=== PATIENT | female | born 1935 | race Caucasian/White ===

== ENCOUNTER → 2016-11-09 | Outpatient (CLI) | payer MEDICARE, OTHER ==
[~2016-11-09] VITALS: Ht 152.4 cm; Wt 59.9 kg
[~2016-11-09] MED LIST: LOMOTIL TABLET1 EACH ORAL; METRONIDAZOLE500 MG ORAL; PROBIOTIC ACID1 EAC3 PO; RECTIV30 GM RC
[2016-11-09 09:58] VITALS: BP 113/69
--- NOTE | 2016-12-06 16:17 | GI Initial Consult Note ---
History of Present Illness General Date patient seen: Nov 09, 2016 Time patient seen: 09:52 Referring physician: GINI Reason for Consultation: RECTAL PAIN Present Illness HPI 81 year old female patient referred to [facility] by Dr. Callahan for evaluation of rectal pain. No other GI complaints noted at this time. Home Meds Reported Medications Diphenoxylate Hcl/Atropine (LOMOTIL TABLET) 1 Each Tablet, 1 TAB ORAL PRN, #30 TAB 0 Refills 11/09/16 Nitroglycerin (RECTIV) 30 Gm Oint...g., 30 GM RC, GM 11/09/16 Metronidazole* (FLAGYL*) 500 Mg Tablet, ORAL THREE TIMES A DAY, #21 TAB 0 Refills 11/09/16 Lactobacillus Acidophilus (Probiotic Acidophilus) 1 Each Tablet, 1 EACH PO DAILY , TAB 11/09/16 Med list reviewed/reconciled: Yes Allergies: Coded Allergies: No Known Allergies (Unverified , 11/09/16) Patient History History Provided By: Patient, Medical Record PMH Narrative diarrhea chronic anal fissure pain PSHx Rectal surgery? Social History: Denies: alcohol use, drug use, other, smoking Review of Systems All Other Systems: negative except mentioned in HPI Physical Exam T 97.8 BP 113/69 P 66 HT 5'0 WT 132 Sp02 EP Interpretation: reviewed General Appearance: well appearing, no apparent distress, alert Head: normocephalic EENT: PERRL/EOMI, normal ENT inspection Neck: supple Respiratory: normal breath sounds, no respiratory distress Cardiovascular: normal rate Gastrointestinal: soft Rectal: deferred Genitourinary: normal inspection Musculoskeletal: normal inspection, back normal Neurologic: normal inspection, alert, oriented x3, responsive Psychiatric: normal inspection, judgement/insight normal, memory normal Skin: normal inspection, normal color, no rash, warm/dry Lymphatic: normal inspection, no adenopathy GI: Plan Problems: (1) Chronic rectal pain (2) Anal fissure (3) Anal abscess Plan LATE ENTRY anal fissure vs abscess ordered anal MRI fu past MR cont rectiv for chronic anal fissure pain Seen with Dr. Macdonald. Thank you for referring this patient. Rosey Nickerson N.P. Dec 06, 2016 16:17
== END | disposition home or self-care (01) ==
LOC: PAN 09:48
DX: K60.2 Anal fissure, unspecified (principal); K61.0 Anal abscess; G89.29 Other chronic pain
CPT/HCPCS: 99201

== ENCOUNTER 2018-02-11 23:37 | Emergency (ER) | payer MEDICARE, OTHER ==
[~2018-02-11] VITALS: Ht 154.9 cm; Wt 59.0 kg
[2018-02-11 23:59] VITALS: BP 140/81
[2018-02-12] MEDS ORDERED: Bacitracin Oint UD TOPIC ONE (00:15)
[2018-02-12] MEDS ORDERED: Tetanus/Diptheria/Pertussis Vaccine 0.5ml Syr IM ONE (00:15)
[2018-02-12] MEDS ORDERED: Augmentin 875mg Tab ORAL ONE (00:15)
[2018-02-12] MEDS ORDERED: AUGMENTIN 875-1 EAC1 ORAL (00:29)
[2018-02-12 00:35] VITALS: BP 0/0
--- NOTE | 2018-02-12 01:48 | Emergency Room Report ---
History of Present Illness General Chief Complaint: Animal Bite Source: Patient Present Illness HPI 82-year-old female presents ED complaining of rat bite to her left thumb. Happened tonight and she was setting a rat trap. Tetanus unknown. Denies any other injuries. Denies fevers or chills. Denies any drainage. Pain is sharp, 3 out of 10, nonradiating. No other aggravating relieving factors. Denies any other associated symptoms Allergies: Coded Allergies: No Known Allergies (Unverified , 11/09/16) Patient History Past Medical History: GERD Past Surgical History: none Pertinent Family History: none Social History: Denies: smoking, alcohol use, drug use Now: No Immunizations: UTD Reviewed Nursing Documentation: PMH: Agreed; PSxH: Agreed Nursing Documentation-PMH Past Medical History: No History, Except For Hx Cardiac Problems: No Hx Cancer: No Hx Gastrointestinal Problems: Yes - GERD Hx Neurological Problems: No Review of Systems All Other Systems: negative except mentioned in HPI Physical Exam Vital Signs Date Time Temp Pulse Resp B/P (MAP) Pulse Ox O2 Delivery O2 Flow Rate FiO2 02/11/18 23:43 97.7 80 16 140/81 99 Room Air 97.7 Sp02 EP Interpretation: reviewed, normal General Appearance: no apparent distress, alert, GCS 15, non-toxic Head: normocephalic Eyes: bilateral eye normal inspection, bilateral eye PERRL ENT: normal ENT inspection Neck: normal inspection Respiratory: normal inspection Cardiovascular #1: normal inspection Gastrointestinal: normal inspection Rectal: deferred Genitourinary: no CVA tenderness Musculoskeletal: normal inspection Neurologic: alert, oriented x3, responsive, motor strength/tone normal, sensory intact, speech normal Psychiatric: judgement/insight normal, memory normal, mood/affect normal, no suicidal/homicidal ideation Skin: other - small puncture wounds to L thumb. no induration/erythema. no discharge Lymphatic: normal inspection Medical Decision Making Diagnostic Impression: Primary Impression: Rat bite Qualified Codes: W53.11XA - Bitten by rat, initial encounter ER Course Hospital Course 82-year-old F presents ED c/o rat bite to L thumb Differential diagnoses include: abscess, cellulitis, fx Clinical course Patient placed on stretcher. After initial history and physical exam reveals elderly female in no acute distress. On exam there is 2 small puncture wounds to the left thumb. No fluctuance or erythema or induration. Patient appears well and nontoxic Wound irrigated. Bacitracin applied. Tetanus given. Augmentin given Diagnosis - rat bite Stable and discharged to home with prescription Rx augmentin. Followup with PMD. Return to ED if symptoms recur or worsen Last Vital Signs Date Time Temp Pulse Resp B/P (MAP) Pulse Ox O2 Delivery O2 Flow Rate FiO2 02/11/18 23:59 97.7 89 16 140/81 99 Room Air 97.7 Status: improved Disposition: HOME, SELF-CARE Condition: Stable Scripts Amoxicillin/Potassium Clav 875-125* (AUGMENTIN 875-125 TABLET*) 1 Each Tablet 1 TAB ORAL TWICE A DAY, #14 TAB Prov: Chet Hartley MD 02/12/18 Patient Instructions: Animal Bite Chet Hartley MD February 12, 2018 01:48
== END 2018-02-12 00:35 | disposition home or self-care (01) ==
LOC: EMR 23:55
DX: S61.052A Open bite of left thumb without damage to nail, initial encounter (principal); W53.11XA Bitten by rat, initial encounter; Y92.9 Unspecified place or not applicable; Z23 Encounter for immunization; K21.9 Gastro-esophageal reflux disease without esophagitis
CPT/HCPCS: 90471; 90715; 99283